=== PATIENT | male | born 1985 | race Caucasian/White ===

== ENCOUNTER 2021-08-01 07:19 | Outpatient (CLI) | payer OTHER ==
--- NOTE | 2021-08-01 10:50 | MRI Report ---
PROCEDURE: Lumbar Spine W/O INDICATIONS: DORSALGIA TECHNIQUE: Noncontrast sagittal T1 spin echo and T2 fast echo, sagittal STIR, axial T1 and T2 fast spin echo thr ough the lumbar spine. In cases with scoliosis, additional coronal T2 fast spin echo may be performe d. COMPARISON: None. FINDINGS: Image quality: Excellent. Alignment and Curvature: There is normal bony alignment. Bone Marrow: Marrow is of normal overall signal. No acute vertebral body compression fractures. Spinal Cord: Conus medullaris terminates at the L1 level. Visualized cord demonstrates normal signa l and size. Paraspinous Soft Tissues: No paravertebral masses. T12-L1: Normal in appearance. L1-L2: The disc height is well-preserved. There is loss of disc signal seen. No significant neural foraminal or central canal narrowing can be seen. L2-L3: Normal in appearance. L3-L4: The disc height and disc signal are well preserved. Mild disc bulge is seen. Mild facet hypertrophy is seen. Mild bilateral neural foraminal narrowing is seen. No significant central can al narrowing is seen. L4-L5: Mild loss of disc height and disc signal are seen. Moderate disc bulge is seen at this leve l. A superimposed central disc protrusion is seen. Moderate facet hypertrophy is seen. Moderate b ilateral neural foraminal narrowing is seen. Minimal central canal narrowing is seen. L5-S1: Mild loss of disc height and disc signal are seen. Minimal disc bulge is seen. Mild facet h ypertrophy is seen. Mild to moderate bilateral neuroforaminal narrowing can be seen. No central letty l narrowing is seen. 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 Reviewed by: Damien Quintero MD on 08/01/2021 9:49 AM KRISTEN Approved by: Damien Quintero MD on 08/01/2021 9:49 AM KRISTEN Station ID: [id number]
== END 2021-08-01 07:20 | disposition home or self-care (01) ==
LOC: DI 07:19
PROVIDERS: ATTEND Student in an Organized Health Care Education/Training Program
DX: M47.816 Spondylosis without myelopathy or radiculopathy, lumbar region (principal); M48.061 Spinal stenosis, lumbar region without neurogenic claudication; M51.26 Other intervertebral disc displacement, lumbar region; M51.36 Other intervertebral disc degeneration, lumbar region; M47.817 Spondylosis without myelopathy or radiculopathy, lumbosacral region; M51.37 Other intervertebral disc degeneration, lumbosacral region; M48.07 Spinal stenosis, lumbosacral region

== ENCOUNTER 2022-10-30 14:00 | Outpatient (CLI) | payer OTHER ==
[2022-10-30 20:47] LABS: CHLAMYDIA TRACHOMATIS DNA NEGATIVE (NEGATIVE); NEISSERIA GONORRHOEAE DNA NEGATIVE (NEGATIVE); TRICHOMONAS VAGINALIS DNA NEGATIVE (NEGATIVE)
== END 2022-10-30 14:15 | disposition home or self-care (01) ==
LOC: LAB.N 14:00
PROVIDERS: ATTEND Physician Assistant Medical
DX: N34.2 Other urethritis (principal)
CPT/HCPCS: 87086; 87491; 87591; 87661